=== PATIENT | male | born 1975 ===

== ENCOUNTER 2020-11-01 17:47 | Emergency (ER) | payer MEDICAID, SELFPAY ==
[2020-11-01 17:51] VITALS: BP 131/84; PULSE 98; RESP 16; TEMP 36.6; O2SAT 98; BMI 32.5
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
[2020-11-01] MEDS: Lidocaine HCl 2 % MPF 5 ML VIAL SUBCUT (18:50)
== END 2020-11-01 19:57 | disposition home or self-care (01) ==
PROVIDERS: Emergency Provider Internal Medicine
DX: S01.511A Laceration without foreign body of lip, initial encounter (principal); S00.83XA Contusion of other part of head, initial encounter; Y04.2XXA Assault by strike against or bumped into by another person, initial encounter; R07.81 Pleurodynia; Y93.9 Activity, unspecified; Y92.019 Unspecified place in single-family (private) house as the place of occurrence of the external cause; Y99.9 Unspecified external cause status
CPT/HCPCS: 12011; 70450; 71101; 90471; 90715; 99284

== ENCOUNTER 2021-05-09 16:53 | Emergency (ER) | payer MEDICAID, SELFPAY ==
--- NOTE | ~2021-05-09 | XR_ITS ---
EXAMINATION: LEFT CLINICAL INFORMATION: Fell and hit floor with pain COMPARISON: Left wrist 09/11/2019 left wrist and hand 07/09/2019 TECHNIQUE: 3 views left hand FINDINGS: There is a relatively nondisplaced fracture involving the diaphysis of the fifth metacarpal with some minimal ventral angulation on the lateral radiograph. Again noted is a plate and screw device over the distal radius. No other definite fractures are seen. XR/XR hand wrist LT IMPRESSION: Fracture mid diaphysis fifth metacarpal.
[2021-05-09 17:01] VITALS: BP 125/74; PULSE 88; RESP 18; TEMP 36.9; O2SAT 98; BMI 31.2
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
--- NOTE | 2021-05-09 18:23 | PC.NURSE ---
ULNAR GUTTER SPLINT APPLIED TO L HAND. PATIENT EDUCATED ON HOW TO CARE FOR SPLINT.
== END 2021-05-09 18:36 | disposition home or self-care (01) ==
PROVIDERS: Emergency Provider Internal Medicine
DX: S62.307A Unspecified fracture of fifth metacarpal bone, left hand, initial encounter for closed fracture (principal); W22.09XA Striking against other stationary object, initial encounter; Y93.9 Activity, unspecified; Y92.9 Unspecified place or not applicable; Y99.9 Unspecified external cause status
CPT/HCPCS: 29125; 73110; 73130; 99283

== ENCOUNTER → 2021-05-11 07:58 | Outpatient (BNVA) | payer MEDICAID, SELFPAY | PROVIDERS: Visit Provider Physician Assistant | DX: S62.308A Unspecified fracture of other metacarpal bone, initial encounter for closed fracture (principal) | CPT/HCPCS: 29125; 26605; 99202 ==

== ENCOUNTER 2021-05-18 08:10 | Outpatient (REF) | payer MEDICAID, SELFPAY ==
--- NOTE | ~2021-05-18 | XR_ITS ---
EXAMINATION: XR HAND, LEFT CLINICAL INFORMATION: Fracture metacarpal bone. COMPARISON: Left hand 05/09/2021 TECHNIQUE: PA, lateral, and oblique views of the left hand. FINDINGS: Again visualized is a transverse nondisplaced fracture diaphysis 5th metacarpal with mild volar angulation. No change from 05/09/2021. Volar plate and screws along the distal radius for an old healed fracture is noted. Mild dorsal 5th metacarpal soft tissue swelling is noted. XR/XR hand LT min 3V IMPRESSION: Stable transverse slightly volar angulated mid 5th metacarpal fracture. Old healed distal radial fracture with volar plate and screws is stable.
== END 2021-05-18 08:11 | disposition home or self-care (01) ==
LOC: HO.XRAY 08:10
PROVIDERS: PCP Internal Medicine; Visit Provider Physician Assistant
DX: S62.307G Unspecified fracture of fifth metacarpal bone, left hand, subsequent encounter for fracture with delayed healing (principal)
CPT/HCPCS: 73130; 99212

== ENCOUNTER 2021-05-19 11:28 | Day surgery (SDC) | payer MEDICAID, SELFPAY ==
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
[2021-05-19] VITALS (7 sets, daily range): BP systolic 122–127; BP diastolic 73–90; PULSE 68–84; RESP 14–18; TEMP 36.6–36.8; O2SAT 94–98; BMI 31.0
--- NOTE | ~2021-05-19 | FL_ITS ---
EXAMINATION: XR FLUOROSCOPY WITH IMAGES CLINICAL INFORMATION: Fracture left fifth metacarpal with ORIF. COMPARISON: Left hand 05/18/2021 TECHNIQUE: Fluoroscopy performed by Dr. Arpan Uribe. Fluoroscopy time: Not available minutes DAP: 76 mGycm2 Images: 3 FINDINGS: There is a left mid fifth metacarpal fracture stabilized with a longitudinal pin through the fifth metacarpal. The fracture fragment is in alignment. No gross bony abnormality seen. FL/FL guidance in OR IMPRESSION: Status post ORIF left fifth metacarpal fracture
--- NOTE | 2021-05-19 12:00 | P.OP_ITS ---
Operative Note Operative Note Date of Service: 05/19/21 Narrative: Operative Note Narrative: Preop diagnosis: 1. Left Metacarpal 5th metacarpal shaft fracture Postop diagnosis: Same Procedure: 1. Left Metacarpal fracture closed reduction percutaneous pinning 2. Ulnar nerve block Surgeon: Jojo Antony MD Anesthesia: General Findings: Metacarpal fracture Implants: 0.062 K-wires times 2 Tourniquet time: None EBL: Minimal Specimen: None Drains: None Complications: None Disposition: Brought to the recovery room in stable condition Plan: Follow-up in 10-14 days for a wound check, postop radiographs and for placement in a short-arm cast or splint Anticipate K-wire removal in 4-5 weeks based on interval bony healing Educate the patient that full fracture healing anticipated in approximately 8-12 weeks. Indications: The patient is 46 years old with a left 5th metacarpal shaft fracture . The risks and benefits of operative treatment, including but not limited to risk of damage to blood vessels, nerves, tendons, infection, recurrence, delayed or nonunion of fracture, persistent pain or numbness, incomplete resolution of preoperative symptoms, or need for further surgery were discussed with the patient and they wished to proceed with surgery. Procedure: Once consent was obtained patient was brought back to the operating suite and placed in the operating table in a supine position. . Perioperative antibiotics and general anesthesia was administered by the anesthesia team. A tourniquet was applied to the proximal aspect of the left upper extremity and the limb was prepped and draped in a standard surgical fashion. Tourniquet was not inflated during the case. The FluoroScan was used during the case to assist with our fracture reduction and placement of all implants. A closed reduction was performed on the patient 's left 5th metacarpal shaft fracture. I placed a single 0.062 K-wire retrograde through the head of the metacarpal extending proximally across the fracture site to the base of the metacarpal. A 2nd 0.062 K-wire was placed transversely through the neck of the 5th metacarpal extending into the head and neck of the 4th metacarpal. Fracture alignment was assessed for both angular and rotational malalignment. Once satisfied with our fracture reduction and implant placement, the K-wires were bent and cut short and pin caps applied. Final fluoroscopic images were then obtained. The wounds were copiously irrigated with normal saline. An ulnar nerve block was then performed by infiltrating about the ulnar nerve at the wrist with some 1% lidocaine with epinephrine for postop pain control. A Sterile dressing and short volar splint was applied. The patient appears to have tolerated the procedure well and with no complications. All digits were well vascularized at the conclusion of the case.
[2021-05-19] MEDS: Lactated Ringers 1,000 ML 100 ML IVCONT (12:22)
--- NOTE | 2021-05-19 13:18 | PC.NURSE ---
Silver dog tag necklace placed in labeled blue cup and placed in patient belongings bag.
--- NOTE | 2021-05-19 13:26 | MHC.SHP ---
Pre-Procedural Eval Section A Date of Service: 05/19/21 Section B Chief Complaint: fx of metacarpal bone Allergies: Allergies Allergy/AdvReac Type Severity Reaction Status Date / Time acetaminophen [From Vicodin] AdvReac Nausea and Verified 05/18/21 14:15 Vomiting hydrocodone [From Vicodin] AdvReac Nausea and Verified 05/18/21 14:15 Vomiting Plan I have reviewed the history and physical and performed a pertinent physical examination on my patient. No changes have occurred unless specified.
== END 2021-05-19 15:43 ==
LOC: HO.SSS 11:28
PROVIDERS: PCP Internal Medicine; Visit Provider Orthopaedic Surgery
PROC: (CPT 26615; principal; 2021-05-19 13:00)
DX: S62.327A Displaced fracture of shaft of fifth metacarpal bone, left hand, initial encounter for closed fracture (principal); X58.XXXA Exposure to other specified factors, initial encounter; Y93.9 Activity, unspecified; Y92.9 Unspecified place or not applicable; Y99.8 Other external cause status; I10 Essential (primary) hypertension; F17.200 Nicotine dependence, unspecified, uncomplicated; Z79.899 Other long term (current) drug therapy
CPT/HCPCS: 26608; J0690; J1100; J2250; J3010

== ENCOUNTER → 2021-05-24 09:03 | Outpatient (BNVA) | payer MEDICAID, SELFPAY | PROVIDERS: Visit Provider Physician Assistant | DX: S62.307G Unspecified fracture of fifth metacarpal bone, left hand, subsequent encounter for fracture with delayed healing (principal) | CPT/HCPCS: 99212 ==

== ENCOUNTER 2021-05-27 23:34 | Emergency (ER) | payer MEDICAID, SELFPAY ==
[2021-05-28 00:11] VITALS: BP 123/71; PULSE 79; RESP 18; TEMP 36.9; O2SAT 97; BMI 30.1
--- NOTE | 2021-05-28 00:43 | ED.EXTPRO ---
HPI - Extremity Problem General Chief complaint: Extremity Injury, Upper Stated complaint: left arm injury Time Seen by Provider: 05/28/21 00:43 Source: patient Mode of arrival: ambulatory History of Present Illness HPI Narrative: 46-year-old male presents with concerns regarding his cast falling off earlier in the day after he had surgery on 05/19 for repair of a left boxer's fracture. Otherwise, he denies any pain, fevers, chills. Related Data Home Medications Medication Instructions Recorded Confirmed omeprazole 1 cap PO DAILY 05/19/21 05/19/21 Previous Rx's Medication Instructions Recorded oxycodone-acetaminophen 1 tab PO Q6H PRN #10 tab 05/19/21 Allergies Allergy/AdvReac Type Severity Reaction Status Date / Time acetaminophen [From Vicodin] AdvReac Nausea and Verified 05/28/21 00:11 Vomiting hydrocodone [From Vicodin] AdvReac Nausea and Verified 05/28/21 00:11 Vomiting Review of Systems Review of Systems: Pertinent positives and negatives as stated in HPI 10 point review of systems is otherwise negative. PMFSH Past Medical History Source: nursing notes reviewed Medical History Depression GERD (gastroesophageal reflux disease) HLD (hyperlipidemia) HTN (hypertension) IBS (irritable bowel syndrome) Smoker Surgical History H/O hemorrhoidectomy Social History Social History Alcohol intake: current Alcohol intake frequency: holidays/special occasions only Patient Tobacco Use Status: Current everyday Tobacco user Advance Directives: No Advance Directives Information Provided: No Current occupational status: employed Current occupation: left handed Physical Exam Vital Signs: Vital Signs: Last Vital Signs Temp 98.4 F 05/28/21 00:11 Pulse 79 05/28/21 00:11 Resp 18 05/28/21 00:11 BP 123/71 05/28/21 00:11 Pulse Ox 97 05/28/21 00:11 Body Mass Index 30.1 VITAL SIGNS: Reviewed. GENERAL: Well developed, well nourished, in no acute distress. HEAD: Normocephalic/atraumatic EYES: PERRLA, EOMI LUNGS: Normal breath sounds. No adventitious sounds or accessory muscle use. SpO2<97> CARDIOVASCULAR: Regular rate and rhythm without noted murmurs ABDOMEN: Soft, non-tender, non-distended with bowel sounds. LEFT HAND: Pins in place without erythema or induration, capillary refill less than 3 seconds, sensation intact, palpable ulnar and radial pulses. NEUROLOGIC: Alert and oriented x 4. Course Course Course Narrative: 46-year-old male with history and clinical presentation consistent with surgical repair of left boxer's fracture and subsequent loss of cast that had been in place. Volar splint was placed after discussion with Orthopedics PA and patient has been made aware that he needs to follow up at the office on 05/31, Sunday. Discharge Plan Discharge Clinical Impression: Boxer's fracture Patient Disposition: Home, Self-Care Instructions: Splint Care (ED), Boxer Fracture (ED) Additional Instructions: 1. Please resume all home medications as prescribed. 2. You are to follow-up with the orthopedic office on Thursday 05/31. Return to the ER for acute worsening of symptoms. Prescriptions: No Action omeprazole 20 mg capsule,delayed release(DR/EC) 1 cap PO DAILY RF: 0 oxycodone-acetaminophen 5-325 mg tablet 1 tab PO Q6H PRN (Reason: pain) Qty: 10 RF: 0 Referrals: Jojo Antony MD [Physician] - 2 days Physician,Unknown [Primary Care Provider] - 2 days
== END 2021-05-28 01:33 | disposition home or self-care (01) ==
PROVIDERS: Emergency Provider Student in an Organized Health Care Education/Training Program
DX: S62.339D Displaced fracture of neck of unspecified metacarpal bone, subsequent encounter for fracture with routine healing (principal); X58.XXXD Exposure to other specified factors, subsequent encounter
CPT/HCPCS: 29125; 99283

== ENCOUNTER 2021-05-31 08:42 | Outpatient (REF) | payer MEDICAID, SELFPAY ==
--- NOTE | ~2021-05-31 | XR_ITS ---
EXAMINATION: XR HAND, LEFT CLINICAL INFORMATION: Fracture 5th metacarpal. COMPARISON: Prior examination 05/18/2021 TECHNIQUE: PA, lateral, and oblique views of the left hand. FINDINGS: Perpendicular positioned K-wires noted within the 5th metacarpal. The longitudinally-oriented K-wire extends through the diaphyseal fracture. Alignment is improved compared with preoperative radiographs. There is some callus formation noted. ADDITIONAL FINDINGS: Postsurgical changes partially visualized in the distal radius with plate and screw fixation noted and some deformity of the distal radius, unchanged. XR/XR hand LT min 3V IMPRESSION: Postoperative changes with improved alignment and hardware in place within the 5th metacarpal. The 5th metacarpal fracture remains visible with some callus formation forming.
== END 2021-05-31 08:43 | disposition home or self-care (01) ==
LOC: HO.HOSX 08:42
PROVIDERS: Visit Provider Physician Assistant
DX: S62.307G Unspecified fracture of fifth metacarpal bone, left hand, subsequent encounter for fracture with delayed healing (principal); W01.0XXD Fall on same level from slipping, tripping and stumbling without subsequent striking against object, subsequent encounter; E78.5 Hyperlipidemia, unspecified; I10 Essential (primary) hypertension; F17.210 Nicotine dependence, cigarettes, uncomplicated
CPT/HCPCS: 29085; 73130; 99212

== ENCOUNTER 2021-06-04 12:01 | Emergency (ER) | payer MEDICAID, SELFPAY ==
[2021-06-04 12:07] VITALS: BP 128/87; PULSE 88; RESP 16; TEMP 37.1; O2SAT 96; BMI 29.0
--- NOTE | 2021-06-04 13:51 | ED.GENADULT ---
HPI - General Adult General Chief complaint: Wound/Laceration Stated complaint: HAND INFECTION Time Seen by Provider: 06/04/21 13:03 Source: patient Limitations: no limitations History of Present Illness HPI narrative: This is a patient with a history of a boxer's fracture, for which he had external fixation surgery done May 19. Patient admits a prior history of boxer's fracture states he has problems with ?anger management?. The patient is concerned that there is a little discharge he is noted on the bandage near the distal pin. He wanted be checked to make sure there is no infection. He has been using peroxide on a cotton swab to clean the pens. Does have orthopedic follow-up. He denies any fever. Related Data Home Medications Medication Instructions Recorded Confirmed omeprazole 1 cap PO DAILY 05/19/21 05/19/21 Previous Rx's Medication Instructions Recorded oxycodone-acetaminophen 1 tab PO Q6H PRN #10 tab 05/19/21 Allergies Allergy/AdvReac Type Severity Reaction Status Date / Time acetaminophen [From Vicodin] AdvReac Nausea and Verified 05/31/21 09:44 Vomiting hydrocodone [From Vicodin] AdvReac Nausea and Verified 05/31/21 09:44 Vomiting Review of Systems Constitutional: Constitutional: Denies fever(s) Integumentary/Breasts: Comments: Drainage noted of the bandage near his left hand external fixation pins, believes there is swelling PMFSH Past Medical History Medical History Anxiety Depression GERD (gastroesophageal reflux disease) HLD (hyperlipidemia) HTN (hypertension) IBS (irritable bowel syndrome) Smoker Surgical History H/O hemorrhoidectomy Social History Social History Alcohol intake: current Alcohol intake frequency: holidays/special occasions only Patient Tobacco Use Status: Current everyday Tobacco user Advance Directives: Yes Advance Directives Information Provided: Yes Advance Directives on File: No Current occupational status: employed Current occupation: left handed Physical Exam Vital Signs: Vital Signs: Last Vital Signs Temp 98.7 F 06/04/21 12:07 Pulse 88 06/04/21 12:07 Resp 16 06/04/21 12:07 BP 128/87 06/04/21 12:07 Pulse Ox 96 06/04/21 12:07 Body Mass Index 29.0 Const: Other: Patient has a somewhat bizarre affect, with speech that is difficult to interrupt, perseverates about his orthopedic and anger issues. General: anxious HENMT: Head: Yes normal to inspection Eyes: General: appearance normal, both eyes and all related structures Resp: Effort & Inspection: normal respiratory effort Auscultation: clear to auscultation bilaterally Cardio: Rate: regular rate Rhythm: regular rhythm Heart sounds: S1 normal heart sound present and S2 normal heart sound present Skin: Other: Left hand with 2 external fixating pins. Both are intact. No drainage from either 1 visible. The bandage has some dried serosanguineous material, very small amount that is dried and crusted. No localized erythema. No fluid can be milked from either of the wounds. No erythema or remarkable swelling. Medical Decision Making MDM Narrative Medical decision making narrative: Patient seems to have a lot of anxiety about his pins slash wounds. He seems to want to have them out but also knows that he is scheduled to have them out later in the month and that they need to stay and to allow the bone to heal. Patient was concerned about infection. No evidence of infection on exam. The patient's pins were cleansed and is and redressed with a new Russel bandage Discharge Plan Discharge Clinical Impression: Visit for wound check Patient Disposition: Home, Self-Care Additional Instructions: Continue cleaning the pins that are in your hand with hydrogen peroxide on a cotton swab daily, and keeping the pin covered with gauze so that the sites where they entered this can does not become contaminated or infected. Follow-up with orthopedics as previously instructed. Return for any worsened symptoms such as increased redness or swelling, fever Prescriptions: No Action omeprazole 20 mg capsule,delayed release(DR/EC) 1 cap PO DAILY RF: 0 oxycodone-acetaminophen 5-325 mg tablet 1 tab PO Q6H PRN (Reason: pain) Qty: 10 RF: 0
--- NOTE | 2021-06-04 14:04 | PC.NURSE ---
PT REMOVED DRESSING FROM HAND/FOREARM, HARDWARE SITE CLEANSED AND HAND RE-DRESSED.
== END 2021-06-04 14:05 | disposition home or self-care (01) ==
PROVIDERS: Emergency Provider Emergency Medicine
DX: S62.339D Displaced fracture of neck of unspecified metacarpal bone, subsequent encounter for fracture with routine healing (principal); X58.XXXD Exposure to other specified factors, subsequent encounter; F41.9 Anxiety disorder, unspecified
CPT/HCPCS: 99283

== ENCOUNTER → 2021-06-06 12:21 | Outpatient (BNVA) | payer MEDICAID, SELFPAY | PROVIDERS: Visit Provider Orthopaedic Surgery | DX: S62.308D Unspecified fracture of other metacarpal bone, subsequent encounter for fracture with routine healing (principal) | CPT/HCPCS: 99212 ==

== ENCOUNTER 2021-06-07 12:00 | Day surgery (SDC) | payer MEDICAID, SELFPAY ==
[2021-06-07] VITALS (7 sets, daily range): BP systolic 93–120; BP diastolic 52–71; PULSE 67–96; RESP 11–18; TEMP 36.6–36.7; O2SAT 96–100; BMI 29.4
--- NOTE | 2021-06-07 13:10 | P.CONAN_ITS ---
[facility] Active Problems Active Problems: All Active Problems (Updated 06/05/21 @ 00:00 by Background Clifford escobar) Boxer's metacarpal fracture, neck, closed (Acute) Closed fracture of 5th metacarpal (Acute) Fracture of fifth metacarpal bone of left hand with delayed healing (Acute) Past Medical History Medical History Anxiety Depression GERD (gastroesophageal reflux disease) HLD (hyperlipidemia) HTN (hypertension) IBS (irritable bowel syndrome) Smoker Surgical History Surgical History H/O hemorrhoidectomy Social History Social History Alcohol intake: current Alcohol intake frequency: holidays/special occasions only Patient Tobacco Use Status: Current everyday Tobacco user Advance Directives: No Advance Directives Information Provided: Yes Current occupational status: employed Current occupation: left handed Meds Allergies Allergy/AdvReac Type Severity Reaction Status Date / Time acetaminophen [From Vicodin] AdvReac Nausea and Verified 06/06/21 12:37 Vomiting hydrocodone [From Vicodin] AdvReac Nausea and Verified 06/06/21 12:37 Vomiting Home Medications Medication Instructions Recorded Confirmed Last Taken Type omeprazole 1 cap PO DAILY 05/19/21 05/19/21 Unknown History Exam Exam Date and Time: June 07, 2021 1310 Height,Weight and Vital Signs: Height 5 ft 10 in Weight 205 lb Last Vital Signs Temp 98.0 F 06/07/21 12:20 Pulse 76 06/07/21 12:20 Resp 18 06/07/21 12:20 BP 111/52 L 06/07/21 12:20 Pulse Ox 97 06/07/21 12:20 Airway Mallampati Class: II TM Dist: >3cm Neck ROM: Full Loose/Missing/Broken Teeth: No Assessment and Plan Assessment Anesthesia Assessment: Anesthesia Plan Discussed and Chart Reviewed Final Anesthetic Review NPO: Yes ASA Class: II Final Preanesthetic Review: No Changes in Pt Med Stat, Meds/Allgs Chart Reviewed, Consent Obtained/Reviewed and Anes Risks/Benef Reviewed Patient Risk: Low Procedure Risk: Low Anesthetic Plan Anesthetic Plan: GA Disposition: Standard PACU
[2021-06-07] MEDS: Lactated Ringers 1,000 ML 50 ML IVCONT (14:10)
--- NOTE | 2021-06-07 14:26 | MHC.SHP ---
Pre-Procedural Eval Section A Date of Service: 06/07/21 Section B Chief Complaint: pin track infection Allergies: Allergies Allergy/AdvReac Type Severity Reaction Status Date / Time acetaminophen [From Vicodin] AdvReac Nausea and Verified 06/06/21 12:37 Vomiting hydrocodone [From Vicodin] AdvReac Nausea and Verified 06/06/21 12:37 Vomiting Plan I have reviewed the history and physical and performed a pertinent physical examination on my patient. No changes have occurred unless specified.
--- NOTE | 2021-06-07 14:27 | W.PM.OPN ---
Operative Note Operative Note Date of Service: 06/07/21 Narrative: Operative Note Narrative: Preop diagnosis: 1. Left 5th metacarpal fracture status post CRPP 2. Left hand pin site infection Postop diagnosis: Same Procedure: 1. Left 5th MCP joint I&D 2. Left 5th metacarpal I&D 3. Left ulnar nerve block Surgeon: Jojo Antony MD Anesthesia: General Findings: Small amount of purulence distal K-wire site at the MCP joint Implants: None, 2 K-wires had been removed from patient in clinic yesterday Tourniquet time: 0 minutes EBL: 5.0 ml Specimen: Cultures taken from both pin sites Drains: None Complications: None Disposition: Brought to the recovery room in stable condition Plan: Follow-up in 3-5 days for wound check, to check cultures, and to assure that the patient is taking his antibiotics Radiographs three views of the left hand to follow-up on left 5th metacarpal shaft fracture at next follow-up Indications: The patient is a 46 year old man with a left 5th metacarpal shaft fracture status post CRPP almost 3 weeks ago. Unfortunately the patient tripped and fell, immersing his left hand in a muddy puddle shortly after surgery. He has also had difficulty complying with keeping clean dressings on his hand and the pin sites. He was seen yesterday in clinic and found to have purulent drainage from the distal most pin site. The decision was made that time to removed both K-wires and to take him to surgery today for an I& D. He has also been started on Augmentin. . The risks and benefits of operative treatment, including but not limited to risk of damage to blood vessels, nerves, tendons, infection, recurrence, persistent pain or numbness, incomplete resolution of preoperative symptoms, or need for further surgery were discussed with the patient and they wished to proceed with surgery. Procedure: Once consent was obtained patient was brought back to the operating suite and placed in the operating table in a supine position. Anesthesia was administered by the anesthesia team. About half of the antibiotics were administered before a culture was taken, and the other half was administered after our culture was taken. A tourniquet was applied to the proximal aspect of the left upper extremity and the limb was prepped and draped in a standard surgical fashion. The tourniquet was not inflated during the case.. Two separate cultures were taken, 1 from the transverse K-wire site at the ulnar aspect of the 5th metacarpal neck, and the 2nd from the more distal and longitudinal K-wire site over the 5th MCP joint. Both specimens were sent for cultures. A 15. Blade was used to make an approximately 8 mm longitudinal incision centered over the ulnar-sided K-wire pin site. Tenotomy scissors were then used to dissect down to the ulnar aspect of the 5th metacarpal, following the K-wire track. A small curette was used to debride the ulnar opening to the 5th metacarpal. The wound was then copiously irrigated down to the 5th metacarpal using an Angiocath on a syringe. My attention was then turned to the more distal pin tract. There was already a 1 cm longitudinal wound at the site of the pin tract. Tenotomy scissors were used to carefully dissect down to the level of the MCP joint and the 5th metacarpal head. Some devitalized tissue was carefully excised from the superficial aspect of the wound. An Angiocath and a syringe was then used to copiously irrigate the wound all the way down to the 5th metacarpal head and the MCP joint. Would satisfied with her I&D I performed an ulnar nerve block by infiltrating about the ulnar nerve at the wrist with some 0.25% plain Marcaine for postop pain control. Hemostasis was obtained with a brief period of local pressure. A sterile dressing and a volar/ulnar gutter splint that would allow for finger range of motion was then placed . The patient appears to have tolerated the procedure well and with no complications. All digits were well vascularized conclusion of the case.
== END 2021-06-07 16:11 | disposition home or self-care (01) ==
PROVIDERS: PCP Pediatrics; Visit Provider Orthopaedic Surgery
PROC: (CPT 10180; principal; 2021-06-07 14:30)
DX: T81.49XA Infection following a procedure, other surgical site, initial encounter (principal); L76.82 Other postprocedural complications of skin and subcutaneous tissue; S62.367A Nondisplaced fracture of neck of fifth metacarpal bone, left hand, initial encounter for closed fracture; Z91.19 Patient's noncompliance with other medical treatment and regimen; W18.39XA Other fall on same level, initial encounter; Y93.9 Activity, unspecified; Y92.89 Other specified places as the place of occurrence of the external cause; Y99.8 Other external cause status; I10 Essential (primary) hypertension; F17.210 Nicotine dependence, cigarettes, uncomplicated
CPT/HCPCS: 10180; 87071; 87205; J0690; J1100; J2250; J2405; J3010

== ENCOUNTER → 2021-06-10 12:58 | Outpatient (BNVA) | payer MEDICAID, SELFPAY | PROVIDERS: Visit Provider Physician Assistant | DX: S62.339D Displaced fracture of neck of unspecified metacarpal bone, subsequent encounter for fracture with routine healing (principal) | CPT/HCPCS: 99212 ==

== ENCOUNTER → 2021-06-17 12:06 | Outpatient (BNVA) | payer MEDICAID, SELFPAY | PROVIDERS: Visit Provider Physician Assistant | DX: S62.337D Displaced fracture of neck of fifth metacarpal bone, left hand, subsequent encounter for fracture with routine healing (principal) | CPT/HCPCS: 99212 ==

== ENCOUNTER 2021-06-20 14:37 | Outpatient (REF) | payer MEDICAID, SELFPAY | END 2021-06-20 14:38 | disposition home or self-care (01) | LOC: HO.HOSX 14:37 | PROVIDERS: Visit Provider Orthopaedic Surgery | DX: Z13.89 Encounter for screening for other disorder (principal) ==

== ENCOUNTER → 2021-07-11 09:58 | Outpatient (BNVA) | payer MEDICAID, SELFPAY | PROVIDERS: PCP Internal Medicine; Referring Provider Internal Medicine; Visit Provider Physician Assistant | DX: K58.9 Irritable bowel syndrome, unspecified (principal); K64.9 Unspecified hemorrhoids; K64.4 Residual hemorrhoidal skin tags | CPT/HCPCS: 99202 ==

== ENCOUNTER 2021-07-27 08:04 | Outpatient (REF) | payer MEDICAID, SELFPAY | END 2021-07-27 08:05 | disposition home or self-care (01) | LOC: HO.HOSX 08:04 | PROVIDERS: Visit Provider Orthopaedic Surgery | DX: Z13.89 Encounter for screening for other disorder (principal) ==

== ENCOUNTER → 2021-10-05 09:24 | Outpatient (BNVA) | payer MEDICAID, SELFPAY | PROVIDERS: PCP Internal Medicine; Referring Provider Internal Medicine; Visit Provider Surgery | DX: K64.8 Other hemorrhoids (principal) | CPT/HCPCS: 46600; 99202 ==

== ENCOUNTER 2021-11-04 07:42 | Outpatient (REF) | payer MEDICAID, SELFPAY ==
--- NOTE | ~2021-11-04 | XR_ITS ---
EXAMINATION: XR SHOULDER, RIGHT CLINICAL INFORMATION: Right shoulder pain COMPARISON: None TECHNIQUE: AP external rotation, Grashey, scapular Y, and axillary views of the right shoulder. FINDINGS: The bones and soft tissues are normal. No fracture. Glenohumeral and acromioclavicular alignment is anatomic with normal joint space. No abnormal soft tissue calcifications. XR/XR shoulder RT min 2V IMPRESSION: Normal right shoulder.
== END 2021-11-04 07:43 | disposition home or self-care (01) ==
LOC: HO.HOSX 07:42
PROVIDERS: Visit Provider Physician Assistant
DX: M75.41 Impingement syndrome of right shoulder (principal); M25.511 Pain in right shoulder; I10 Essential (primary) hypertension; E78.5 Hyperlipidemia, unspecified; F41.8 Other specified anxiety disorders; F17.210 Nicotine dependence, cigarettes, uncomplicated; Z88.6 Allergy status to analgesic agent
CPT/HCPCS: 20610; 73030; 99212; J1040

== ENCOUNTER → 2021-12-16 09:31 | Outpatient (BNVA) | payer MEDICAID, SELFPAY | PROVIDERS: PCP Internal Medicine; Visit Provider Physician Assistant | DX: M75.41 Impingement syndrome of right shoulder (principal); M75.51 Bursitis of right shoulder | CPT/HCPCS: 99212 ==

== ENCOUNTER → 2022-04-13 10:11 | Outpatient (BNVA) | payer MEDICAID, SELFPAY | PROVIDERS: PCP Internal Medicine; Visit Provider Physician Assistant | DX: K58.9 Irritable bowel syndrome, unspecified (principal) ==

== ENCOUNTER 2022-05-10 08:27 | Day surgery (SDC) | payer MEDICAID, SELFPAY ==
[2022-05-04 12:35] VITALS: BMI 30.7
--- NOTE | 2022-05-09 08:58 | P.CONAN_ITS ---
Documented by User: Kaylene Daniel NP 05/09/22 08:59 HPI - Anesthesia Eval Consult details Narrative: 47yo M for Right Shoulder Arthroscopy with subacrominal decompression s/p hand I&D 05/2021 with GA-LMA 4 PMFSH Active Problems Active Problems: All Active Problems (Updated 04/13/22 @ 10:37 by Brigitte Shannon PA-C) Boxer's metacarpal fracture, neck, closed (Acute) Closed fracture of 5th metacarpal (Acute) Fracture of fifth metacarpal bone of left hand with delayed healing (Acute) Anal skin tag (Acute) Impingement syndrome of right shoulder (Acute) Subacromial bursitis of right shoulder joint (Acute) Prolapsed hemorrhoids (Acute) Hemorrhoids (Acute) IBS (irritable bowel syndrome) (Acute) Past Medical History Medical History Anxiety Depression GERD (gastroesophageal reflux disease) Hemorrhoids HLD (hyperlipidemia) HTN (hypertension) IBS (irritable bowel syndrome) Prolapsed hemorrhoids Smoker Surgical History Surgical History H/O hemorrhoidectomy History of esophagogastroduodenoscopy (EGD) Hx of colonoscopy Hx of hand surgery Social History Social History (Updated 05/10/22 @ 09:03 by Maira Rivera RN) Household Members Other:: lives alone-5 daughters and 1 son Are you a primary healthcare administrator to a significant other at home: No Do you presently have visiting nurse or other home services: No Alcohol intake: current Alcohol intake frequency: does not drink Patient Tobacco Use Status: Former Tobacco user Quit Date: 01/26/2022 Current occupational status: unemployed and disabled Current occupation: left handed Meds Allergies Allergy/AdvReac Type Severity Reaction Status Date / Time acetaminophen [From Vicodin] AdvReac Nausea and Verified 05/08/22 14:07 Vomiting, hives hydrocodone [From Vicodin] AdvReac Nausea and Verified 05/08/22 14:07 Vomiting Home Medications Medication Instructions Recorded Confirmed Last Taken Type omeprazole 20 mg capsule,delayed 1 cap PO DAILY 05/19/21 05/10/22 05/09/22 Histo ry release Exam Exam Date and Time: May 09, 2022 0858 Height,Weight and Vital Signs: Height 5 ft 9 in Weight 94.347 kg Assessment and Plan Assessment Anesthesia Assessment: Chart Reviewed Documented by User: Ian Waterman MD 05/10/22 16:26 HPI - Anesthesia Eval Consult details Narrative: 47yo M for Right Shoulder Arthroscopy with subacrominal decompression s/p hand I&D 05/2021 with GA-LMA 4 RUE restricted range of motion with tingling and numbness PMFSH Past Medical History Medical History Anxiety Depression GERD (gastroesophageal reflux disease) Hemorrhoids HLD (hyperlipidemia) HTN (hypertension) IBS (irritable bowel syndrome) Prolapsed hemorrhoids Smoker Family History Family history of problems with anesthesia: No Surgical History Surgical History H/O hemorrhoidectomy History of esophagogastroduodenoscopy (EGD) Hx of colonoscopy Hx of hand surgery History of Problems with Anesthesia: No Social History Social History (Updated 05/10/22 @ 09:03 by Maira Rivera RN) Household Members Other:: lives alone-5 daughters and 1 son Are you a primary healthcare administrator to a significant other at home: No Do you presently have visiting nurse or other home services: No Alcohol intake: current Alcohol intake frequency: does not drink Patient Tobacco Use Status: Former Tobacco user Quit Date: 01/26/2022 Current occupational status: unemployed and disabled Current occupation: left handed Meds Allergies Allergy/AdvReac Type Severity Reaction Status Date / Time acetaminophen [From Vicodin] AdvReac Nausea and Verified 05/08/22 14:07 Vomiting, hives hydrocodone [From Vicodin] AdvReac Nausea and Verified 05/08/22 14:07 Vomiting Home Medications Medication Instructions Recorded Confirmed Last Taken Type omeprazole 20 mg capsule,delayed 1 cap PO DAILY 05/19/21 05/10/22 05/09/22 History release Exam Airway Mallampati Class: III TM Dist: >3cm Neck ROM: Full Loose/Missing/Broken Teeth: Yes (Chipped teeth ) Heart: S1,S2 Lungs: b/l breath sounds Assessment and Plan Assessment Anesthesia Assessment: Anesthesia Plan Discussed Final Anesthetic Review Family History of Problems with Anesthesia: No History of Problems with Anesthesia: No NPO: Yes ASA Class: II Final Preanesthetic Review: Meds/Allgs Chart Reviewed and Consent Obtained/Reviewed Patient Risk: Intermediate Procedure Risk: Intermediate Anesthetic Plan Anesthetic Plan: GA and Regional Block Disposition: Standard PACU
[2022-05-10] VITALS (10 sets, daily range): BP systolic 104–124; BP diastolic 60–76; PULSE 66–95; RESP 16–18; TEMP 36.3–36.7; O2SAT 93–96; BMI 31.0
[2022-05-10] MEDS: Lactated Ringers 1,000 ML 100 ML IVCONT (09:51)
--- NOTE | 2022-05-10 11:27 | MHC.SHP ---
Pre-Procedural Eval Section A Date of Service: 05/10/22 The patient is an INPATIENT: No Changes since office visit: Yes Patient answered all questions; No Cold of Flu in the past 2 weeks, No New Medical Problems and No Changes in Medication The History & Physical has been completed within 30 days and I have reviewed it.: Yes Section B Chief Complaint: Bursitis of right shoulder,impingement syndrome Allergies: Allergies Allergy/AdvReac Type Severity Reaction Status Date / Time acetaminophen [From Vicodin] AdvReac Nausea and Verified 05/08/22 14:07 Vomiting, hives hydrocodone [From Vicodin] AdvReac Nausea and Verified 05/08/22 14:07 Vomiting Plan I have reviewed the history and physical and performed a pertinent physical examination on my patient. No changes have occurred unless specified.
--- NOTE | 2022-05-10 12:33 | P.BOP_ITS ---
Brief Operative Note Date of Service: 05/10/22 Pre-op diagnosis: Sub acromial impingement Post-op diagnosis: other (Adhesive capsulitis) Procedure: Anterior interval release and synovectomy sub acromial decompression Implants: none Surgeon: Nael Cheatham MD Anesthesia: GETA and regional Was an Swimming Pool Installer used for this Procedure?: Yes Swimming Pool Installer: Trini Abarca Estimated blood loss (mL): 20 IV fluids (mL): 500 Pathology: none sent Condition: stable Disposition: PACU
--- NOTE | 2022-05-16 11:25 | P.OP_ITS ---
Operative Note Operative Note Date of Service: 05/16/22 Narrative: Date of Service: 05/10/22 Pre-op diagnosis: Sub acromial impingement Post-op diagnosis: other (Adhesive capsulitis) Procedure: Anterior interval release and synovectomy sub acromial decompression Implants: none Surgeon: Nael Cheatham MD Anesthesia: GETA and regional Was an Shipping Receiving Manager used for this Procedure?: Yes Shipping Receiving Manager: Trini Abarca Estimated blood loss (mL): 20 IV fluids (mL): 500 Pathology: none sent Condition: stable Disposition: PACU Procedure in detail: Patient was brought to the operating room and placed the the beach chair position. All bony prominences were well padded and the limb was prepped and draped in standard sterile fashion. A time out was called to identify proper site, proper procedure and proper surgeon. IV antibiotics per weight were administered. I began by making a posterolateral stab incision with a 15 blade. A blunt trochar was placed into the glenohumeral joint and I insufflated the joint with saline and a 30 degree arthroscope was placed. I established an outside- in anterior portal just distal to the biceps tendon. I then began my inspection of the glenohumeral joint. There was anterior interval synovitis involving the MGHL, and the superior labrum/biceps anchor. An interior interval synovectomy was performed removing all inflamed synovium. The biceps/labral complex was intact as was the subscapularis and the labrum. There were no cartilage changes and the undersurface of the RTC was intact. I then removed the trochar and entered the subacromial space. A direct lateral portal was then established and I performed a bursectomy. The cuff was then examined.There was florid subacromial bursitis. I debrided and removed the bursal tissue and then performed a 5 mm sub-acromial decompression in standard fashion. The RTC was examined adn was intact. Once I was satisfied with the repair final images were captured and I removed all instrumentation. Portals were closed with nylon. Patient was placed in an abduction sling, extubated and brought to the recovery room in stable condition. There were no known complications.
== END 2022-05-10 14:50 | disposition home or self-care (01) ==
LOC: HO.SSS 08:27
PROVIDERS: PCP Internal Medicine; Visit Provider Orthopaedic Surgery
PROC: (CPT 29805; principal; 2022-05-10 10:50)
DX: M75.41 Impingement syndrome of right shoulder (principal); M75.51 Bursitis of right shoulder; M75.01 Adhesive capsulitis of right shoulder; K21.9 Gastro-esophageal reflux disease without esophagitis; I10 Essential (primary) hypertension; E78.5 Hyperlipidemia, unspecified; K58.9 Irritable bowel syndrome, unspecified; F17.210 Nicotine dependence, cigarettes, uncomplicated
CPT/HCPCS: 29822; 29820; J0171; J0690; J1100; J1170; J2250; J2370; J2405; J2550; J2795; J3010

== ENCOUNTER 2022-06-29 13:00 | Outpatient (RCR) | payer MEDICAID, SELFPAY ==
--- NOTE | 2022-05-15 15:51 | MHC.PT.EP ---
[facility] [place] Office [place] Office [place] Office [address] Yannick Spear [address] [phone] F: [phone] F: [phone] F: [phone] F: [phone] Physical Therapy Plan of Care Date of Evaluation: Date of Surgery: 05/10/22 Diagnosis: Anterior interval release and synovectomy sub acromial decompression Assessment: AGNES IS A 47 YO MALE S/P SAD AND ANTERIOR INTERVAL RELEASE WHO PRESENTS POD #5 FOR ORTHOPEDIC FOLLOW UP AND PT EVALUATION. UPON EXAM HE DEMONSTRATES THE EXPECTED IMPAIRMENTS OF DECREASED ROM, DECREASED STRENGTH, ALTERED POSTURE AND POSITIONING, INCREASED UPPER TRAP GUARDING, AND INCREASED PAIN AND EDEMA. FUNCTIONAL LIMITATIONS INCLUDE DECREASED ABILITY TO PERFORM HOMEMAKING AND SELF-CARE TASKS, DECREASED ABILITY TO PERFORM PUSHING, PULLING, LIFTING AND REACHING. INABILITY TO DRIVE AND PERFORM WORK TASKS, DECREASED PARTICIPATION IN COMMUNITY AND RECREATIONAL ACTIVITIES AND DISRUPTED SLEEP. THE PT IS A GOOD CANDIDATE FOR SKILLED PT DUE TO AGE, POTENTIAL REMEDIATION OF IMPAIRMENTS, TYPICAL DISEASE/CONDITION PROGRESSION AND PROGNOSIS, COMORBIDITIES, AND MOTIVATION. PT WOULD BENEFIT FROM TAILORED PROGRAM OF THERAPEUTIC ACTIVITIES, FUNCTIONAL TRAINING, GAIT TRAINING, POSTURAL EDUCATION, NEUROMUSCULAR RE-EDUCATION, AND MODALITIES NEEDED. Frequency and Duration: The patient will be seen 2 X WEEK FOR 4 WEEKS Short Term Goals: INITIATE HEP AND PROMOTE SELF MANAGEMENT OF SYMPTOMS [employer] Goals: FULL, PAIN FREE ROM FULL UE STRENGTH, PAIN FREE TO PERFORM ALL HOMEMAKING TASKS WITHOUT RESTRICTION TO PLACE OBJECT AT MINIMUM OF 5# INTO CABINET AT SHOULDER HEIGHT TO RETURN TO [employer] WORK Treatment Plan: Modalities to reduce pain, spasms and effusion. Manual therapy to restore motion and function. Therapeutic exercise to improve strength and flexibility. Neuromuscular re-education for posture and balance. Therapeutic activities to return to functional activities of daily living. Electronically signed by: OPAL BURNS PT, DPT Please sign and return to therapist. Thank you for your referral.
--- NOTE | 2022-07-25 10:59 | MHC.PT.DC ---
[facility] [place] Office [place] Office [place] Office [address] Yannick Spear [address] [phone] F: [phone] F: [phone] F: [phone] F: [phone] Physical Therapy Discharge Report Diagnosis: Anterior interval release and synovectomy sub acromial decompression Date of Surgery: 05/10/22 Date of Evaluation: 05/15/22 Date of Discharge: 07/25/22 Treatments to Date: 7 Cancellations to Date: 6 No Shows to Date: 4 Discharge Status: Visit Non-compliance Discharge Summary: The patient has had poor attendance throughout this plan of care. He was hesitant to work on his range of motion and often required a lot of encouragement to participate. He had fair compliance with his HEP. He is discharged from this physical therapy plan of care due to visit non-compliance. Per last treatment note: Pt with maintained ROM from last visit, feels he is not progressing and is frustrated with the process. Pt with increased tension in R pec and bicep, able to naldo gentle manual stretches. Continue to progress per pt naldo. Electronically signed by: Lashonda Driver PT, DPT Please sign and return to therapist. Thank you for your referral.
== END 2022-07-25 10:59 | disposition home or self-care (01) ==
LOC: HO.PT 13:00
PROVIDERS: PCP Internal Medicine; Visit Provider Physician Assistant
DX: M75.41 Impingement syndrome of right shoulder (principal)
CPT/HCPCS: 97110; 97140; 97161; 97535

== ENCOUNTER 2023-06-27 12:16 | Outpatient (REF) | payer MEDICAID, SELFPAY ==
--- NOTE | ~2023-06-27 | XR_ITS ---
EXAMINATION: XR CHEST CLINICAL INFORMATION: Left lower lobe pneumonia. Cough for one week. Left pleural or rales on auscultation. COMPARISON: February 29, 2020. TECHNIQUE: 2 views of the chest were obtained. XR/XR chest 2V FINDINGS/IMPRESSION: A focal interstitial and alveolar infiltrate projects over the lower lobes on lateral view. It is unclear on frontal view whether this is on the left or the right; it is probably located on the left. No effusion or pneumothorax is seen. The cardiovascular structures, mediastinum, and diaphragm appear unremarkable. There is an old, healed fracture of the distal end of the left clavicle. There may be a mild compression deformity of a midthoracic vertebral body, age indeterminate. Recommend clinical correlation.
== END 2023-06-27 12:17 | disposition home or self-care (01) ==
LOC: HO.HHCX 12:16
PROVIDERS: Visit Provider General Practice
DX: J18.9 Pneumonia, unspecified organism (principal)
CPT/HCPCS: 71046

== ENCOUNTER 2023-10-24 14:45 | Outpatient (REF) | payer MEDICAID, SELFPAY ==
[2023-10-24 18:04] LABS: Alanine Aminotransferase 49 U/L (0-40); Albumin Level 3.8 g/dL (3.5-5.0); Alkaline Phosphatase 62 U/L (39-117); Aspartate Amino Transferase 35 U/L (5-37); Bilirubin Direct 0.1 mg/dL (0.0-0.5); Bilirubin Total 0.6 mg/dL (0.0-1.0); Cholesterol 180 mg/dL (<200); HDL Cholesterol 36 mg/dL (>40); LDL Cholesterol Calculated 97 mg/dL (<100); Total Protein 5.8 g/dL (6.5-8.0); Triglycerides 238 mg/dL (<150)
== END 2023-10-24 14:46 | disposition home or self-care (01) ==
LOC: HO.CHCLDS 14:45
PROVIDERS: Visit Provider Internal Medicine
DX: E78.2 Mixed hyperlipidemia (principal)
CPT/HCPCS: 36415; 80061; 80076

== ENCOUNTER 2024-04-10 09:09 | Emergency (ER) | payer MEDICAID, SELFPAY ==
--- NOTE | ~2024-04-10 | XR_ITS ---
EXAMINATION: XR CHEST CLINICAL INFORMATION: Chest pain COMPARISON: Chest radiograph from 06/27/2023 TECHNIQUE: 2 views of the chest were obtained. FINDINGS: No focal consolidation. No pneumothorax. Trachea is midline. Cardiac mediastinal silhouette is not enlarged. No large pleural effusion. Chronic fracture deformity of the left distal clavicle. Soft tissues are unremarkable. XR/XR chest 2V IMPRESSION: No acute cardiopulmonary process.
--- NOTE | 2024-04-10 09:12 | ECG_ITS ---
Test Reason : chest pain Blood Pressure : / mmHG Vent. Rate : 082 BPM Atrial Rate : 082 BPM P-R Int : 142 ms QRS Dur : 084 ms QT Int : 360 ms P-R-T Axes : 034 049 024 degrees QTc Int : 420 ms Normal sinus rhythm Nonspecific T wave abnormality Abnormal ECG When compared with ECG of 29-FEB-2020 17:43, No significant change was found Referred By: Generic ED Physician Electronically Signed By:CHAYO CORBETT MD
[2024-04-10 09:24] VITALS: BP 126/78; PULSE 84; RESP 16; TEMP 37.1; O2SAT 97; BMI 35.4
[2024-04-10 09:34] LABS: MANUAL DIFF FLAG NO
[2024-04-10 09:37] LABS: Basophils Absolute Auto 0.1 X10*3/uL (0.0-0.2); Basophils Percent Auto 0.8 % (0-2); Eosinophils Absolute Auto 0.1 X10*3/uL (0.0-0.4); Eosinophils Percent Auto 1.5 % (0-4); Hematocrit 43.7 % (42.0-52.0); Hemoglobin 15.1 g/dl (14.0-18.0); Imm Gran Abs Auto 0.01 X10*3/uL (0.00-0.03); Imm Gran Pct Auto 0.2 % (0.0-0.4); Lymphocytes Absolute Auto 2.7 X10*3/uL (1.2-4.9); Mean Corpuscular HGB Conc 34.6 g/dl (31.0-36.0); Mean Corpuscular Hemoglobin 28.4 pg (27.0-33.0); Mean Corpuscular Volume 82.1 fL (80.0-98.0); Mean Platelet Volume 11.7 fL (9.4-12.4); Monocytes Absolute Auto 0.4 X10*3/uL (0.1-1.2); Monocytes Percent Auto 6.4 % (2-11); Neutrophils Absolute Auto 3.3 x10*3/uL (2.0-8.3); Neutrophils Percent Auto 50.1 % (45-73); Platelet Count 182 X10*3/uL (160-400); Red Blood Count 5.32 X10*6/uL (4.60-5.80); Red Cell Distribution Width 13.7 % (11.0-16.0); White Blood Count 6.6 X10*3/uL (4.8-10.8)
[2024-04-10 09:53] LABS: Anion Gap 13 (12-20); Blood Urea Nitrogen 12 mg/dL (9-16); Carbon Dioxide 23 mmol/L (22-29); Chloride 108 mmol/L (96-108); Creatinine Clr Calc Pharmacy 106.7; Estimated Glomerular Filt Rate > 60; Glucose Random 183 mg/dL (60-115); Potassium 3.6 mmol/L (3.3-5.1); Sodium 140 mmol/L (135-145)
[2024-04-10 10:00] VITALS: BP 116/70; PULSE 74; RESP 10; TEMP 36.8; O2SAT 96
[2024-04-10 10:01] LABS: B Type Natriuretic Peptide < 10 pg/mL (<100); Troponin-I High Sensitivity < 2.7 ng/L (<3.5-35.0)
[2024-04-10 10:14] LABS: Influenza A PCR NEGATIVE (Negative); Influenza B PCR NEGATIVE (Negative); Resp Syncy Virus RNA Qual PCR NEGATIVE (Negative); SARS COV2 PCR INHOUSE NEGATIVE (Negative)
--- NOTE | 2024-04-10 11:24 | ED_ITS ---
HPI - Chest Pain General Chief Complaint: Chest Pain Stated Complaint: Chest pain Time Seen by Provider: 04/10/24 10:47 Source: patient Mode of arrival: ambulatory History of Present Illness HPI narrative: 49-year-old male with history of HLD, prior smoker 3 years ago, denies any alcohol/drugs use and reports sharp parasternal chest pain that is intermittent in nature and he denies any association with positional change/deep inspiration/movement that started last night in states that has persisted into today. Related Data Home Medications ?Medication ?Instructions ?Recorded ?Confirmed omeprazole 20 mg capsule,delayed 1 cap PO DAILY 05/19/21 05/10/22 release Previous Rx's ?Medication ?Instructions ?Recorded diclofenac sodium 75 mg 75 mg PO BID PRN pain 30 days #60 05/10/22 tablet,delayed release tabs Allergies Allergy/AdvReac Type Severity Reaction Status Date / Time acetaminophen [From Vicodin] AdvReac Nausea and Verified 04/10/24 09:26 Vomiting, hives hydrocodone [From Vicodin] AdvReac Nausea and Verified 04/10/24 09:26 Vomiting Review of Systems 2 Review of Systems: Pertinent positives and negatives as stated in HPI PMFSH Past Medical History Source: nursing notes reviewed Medical History Prolapsed hemorrhoids Hemorrhoids Anxiety Smoker IBS (irritable bowel syndrome) Depression GERD (gastroesophageal reflux disease) HLD (hyperlipidemia) HTN (hypertension) Surgical History Hx of colonoscopy History of esophagogastroduodenoscopy (EGD) Hx of hand surgery H/O hemorrhoidectomy Social History Social History Household Members Other:: lives alone-5 daughters and 1 son Are you a primary healthcare social worker to a significant other at home: No Do you presently have visiting nurse or other home services: No Alcohol intake: current Alcohol intake frequency: does not drink Patient Tobacco Use Status: Former Tobacco user Quit Date: 01/26/2022 Advance Directives: No Current occupational status: unemployed and disabled Current occupation: left handed Physical Exam 2 Vital Signs: Vital Signs: Last Vital Signs Temp 98.2 F 04/10/24 10:00 Pulse 74 05/16/24 10:00 Resp 10 L 04/10/24 10:00 BP 116/70 04/10/24 10:00 Pulse Ox 96 04/10/24 10:00 O2 Del Method Room Air 04/10/24 10:00 BMI result Body Mass Index 35.4 VITAL SIGNS: Reviewed. GENERAL: Well developed, well nourished, in no acute distress. HEAD: Normocephalic/atraumatic EYES: PERRLA, EOMI EARS: Ext canals without abnormality NOSE: Nares patent bilateral OROPHARYNX: no oral lesions noted, posterior pharynx clear NECK: Supple, no adenopathy LUNGS: Normal breath sounds. No adventitious sounds or accessory muscle use. SpO2<96>; CHEST WALL: There is reproducible chest pain at the approximate ribs 6/7 without crepitus CARDIOVASCULAR: Regular rate and rhythm without noted murmurs, no JVD or lower extremity edema. ABDOMEN: Soft, non-tender, non-distended with bowel sounds. MUSCULOSKELETAL: No tenderness, deformities, or effusions noted on gross inspection. EXTREMITIES: No cyanosis, clubbing or edema. SKIN: Inspection of the skin reveals no rashes NEUROLOGIC: Alert and oriented x 4. Strength and sensation to light touch were grossly intact x 4. Medical Decision Making Medical Decision Making [facility] Narrative: 49-year-old male with history and clinical presentation, DDX: Musculoskeletal, costochondritis, no concern for pericarditis/ACS/pneumonia, low clinical suspicion for pancreatitis/gastritis given reproducibility of the pain over the ribs/cartilage interface. Patient given combination analgesics with lidocaine patch. I reviewed all investigations and hematologic indices are negative for leukocytosis/anemia/thrombocytopenia. Chemistries indices are negative for MARCELINO/electrolyte or liver enzyme derangements and high sensitivity troponin is undetectable and BNP is undetectable. Viral testing is negative for influenza/RSV/COVID-19. Chest x-ray negative for infiltrate or venous congestion otherwise my interpretation is in agreement with radiology's impression. EKG without concerning features. All results and findings to include the suspected diagnosis were discussed with the patient at bedside and he is otherwise discharged with strong recommendations to follow-up with his primary care doctor. Differential Diagnosis Differential Diagnoses: The differential diagnosis associated with the presentation includes Please see the discussion above Admission/Observation Consideration of admission/observation: Escalation of care including admission/observation considered Please see the discussion above Lab Data [facility] Lab Attestation statement: I reviewed the patient's lab results. Please see the discussion above 04/10/24 09:26 04/10/24 09:26 Labs: Lab Results 04/10/24 Range/Units 09:26 WBC 6.6 (4.8-10.8) X10*3/uL RBC 5.32 (4.60-5.80) X10*6/uL Hgb 15.1 (14.0-18.0) g/dl Hct 43.7 (42.0-52.0) % MCV 82.1 (80.0-98.0) fL MCH 28.4 (27.0-33.0) pg MCHC 34.6 (31.0-36.0) g/dl RDW 13.7 (11.0-16.0) % Plt Count 182 (160-400) X10*3/uL MPV 11.7 (9.4-12.4) fL Immature Gran % (Auto) 0.2 (0.0-0.4) % Neut % (Auto) 50.1 (45-73) % Lymph % (Auto) 41.0 H (20-40) % [place] % (Auto) 6.4 (2-11) % Eos % (Auto) 1.5 (0-4) % Baso % (Auto) 0.8 (0-2) % Lymph # (Auto) 2.7 (1.2-4.9) X10*3/uL [place] # (Auto) 0.4 (0.1-1.2) X10*3/uL Eos # (Auto) 0.1 (0.0-0.4) X10*3/uL Baso # (Auto) 0.1 (0.0-0.2) X10*3/uL Abs Immat Gran (auto) 0.01 (0.00-0.03) X10*3/uL Absolute Neuts (auto) 3.3 (2.0-8.3) x10*3/uL Absolute Nucleated RBC 0.000 (0.0-0.012) X10*3/uL Nucleated RBC % (auto) 0.0 (0.0-0.2) /100WBC Sodium 140 (135-145) mmol/L Potassium 3.6 (3.3-5.1) mmol/L Chloride 108 (96-108) mmol/L Carbon Dioxide 23 (22-29) mmol/L Anion Gap 13 (12-20) BUN 12 (9-16) mg/dL Creatinine 1.04 (0.5-1.4) mg/dL Estim Creat Clear Calc 106.7 Estimated GFR > 60 Random Glucose 183 H (60-115) mg/dL Calcium 9.0 (8.4-10.2) mg/dL Troponin I High Sens < 2.7 (<3.5-35.0) ng/L B-Natriuretic Peptide < 10 (<100) pg/mL Influenza Type A (PCR) NEGATIVE (Negative) Influenza Type B (PCR) NEGATIVE (Negative) RSV RNA Qual (PCR) NEGATIVE (Negative) SARS-CoV-2 RNA (RT-PCR) NEGATIVE (Negative) Independent Interpretation I performed an independent interpretation of an: EKG Interpretation: Normal sinus rhythm, HR-82, no STEMI, AL/QRS/QTC is within normal limits. Radiology Impression Discussion of test interpretation with radiology: I have reviewed the radiologist's reading. Radiologist Impression: Please see the discussion above External Record Review External record reviewed: Outpatient record and Prior outpatient labs Chronic Conditions HLD Critical Care Time Critical Care Time Critical Care Time: Yes Total Critical Care Time: 45 Attestation: I personally attest to this time spent taking care of the patient. Discharge Plan Discharge Clinical Impression: Atypical chest pain, Chest wall pain, Costochondritis Patient Disposition: Home, Self-Care Instructions: Costochondritis (ED), Chest Wall Pain (ED) Additional Instructions: 1. Ibuprofen 400 mg, orally with milk or food, every 6 hours as needed for pain control. 2. Lidocaine patch, this is available [id number], place it at the area of maximal tenderness as directed on the outside packaging. 3. Follow-up with your primary care doctor on Sunday morning. Return to the ER for any worsening symptoms. Prescriptions: No Action omeprazole 20 mg capsule,delayed release(DR/EC) 1 cap PO DAILY diclofenac sodium 75 mg tablet,delayed release (DR/EC) 75 mg PO BID PRN (Reason: pain) 30 Days Qty: 60 0RF Referrals: Isaac Sarah MD [Primary Care Provider] - Print Language: [place] Citizen
[2024-04-10] MEDS: Ibuprofen 400 MG TABLET PO (11:33)
[2024-04-10] MEDS: Lidocaine 4 % Patch ADH..PATCH 1 PATCH TRANSDERMA (11:34)
[2024-04-10 11:39] VITALS: BP 104/67; PULSE 67; RESP 12; TEMP 37.1; O2SAT 95
== END 2024-04-10 11:44 | disposition home or self-care (01) ==
PROVIDERS: Emergency Provider Student in an Organized Health Care Education/Training Program; PCP Internal Medicine
DX: R07.89 Other chest pain (principal); M94.0 Chondrocostal junction syndrome [Tietze]; I10 Essential (primary) hypertension
CPT/HCPCS: 0241U; 36415; 71046; 80048; 83880; 84484; 85025; 93005; 99283; 99285

== ENCOUNTER → 2024-04-10 09:12 | Outpatient (BNV) | payer MEDICAID, SELFPAY | PROVIDERS: Emergency Provider Student in an Organized Health Care Education/Training Program; PCP Internal Medicine; Visit Provider Internal Medicine Cardiovascular Disease | DX: R94.31 Abnormal electrocardiogram [ECG] [EKG] (principal) | CPT/HCPCS: 93010 ==

== ENCOUNTER 2025-06-08 14:44 | Emergency (ER) | payer MEDICAID, SELFPAY ==
[2025-06-08 15:14] VITALS: BP 116/71; PULSE 82; RESP 16; TEMP 36.1; O2SAT 95; BMI 33.0
--- NOTE | 2025-06-08 15:37 | ED.WOUNDLAC ---
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 Patient states he was using a lithographic etcher while cutting sweet potatoes when he looked away briefly and cut his right thumb instead. Reports the area began to immediately bleed. He washed the area out and applied a Band-Aid. Bleeding is controlled on arrival. Admits the thumb is throbbing . His tetanus is not UTD. Denies any numbness/tingling/weakness of the digit. Not on anticoagulation. Related Data Home Medications ?Medication ?Instructions ?Recorded ?Confirmed omeprazole 20 mg capsule,delayed 1 cap PO DAILY 05/19/21 05/10/22 release Previous Rx's ?Medication ?Instructions ?Recorded diclofenac sodium 75 mg 75 mg PO BID PRN pain 30 days #60 05/10/22 tablet,delayed release tabs Allergies Allergy/AdvReac Type Severity Reaction Status Date / Time acetaminophen (From Vicodin) AdvReac Nausea and Verified 06/08/25 15:15 Vomiting, hives hydrocodone (From Vicodin) AdvReac Nausea and Verified 06/08/25 15:15 Vomiting Review of Systems Review of Systems: Constitutional: No fever, chills, fatigue, night sweats, weight changes ENT/Mouth: No ear pain, hearing loss, nasal congestion, sinus pain, rhinorrhea, sore throat Eyes: No eye pain, swelling, redness, vision changes, discharge Cardio: No chest pain, palpitations, MONTANEZ, orthopnea, peripheral edema Pulm: No SOB, cough, sputum, wheezing, dyspnea, hemoptysis GI: No nausea, vomiting, hematemesis, abdominal pain, diarrhea, constipation, hematochezia, melena : No irregular bleeding, dysuria, frequency, urgency, hesitancy, hematuria, flank pain, urinary flow changes, urinary incontinence or retention MSK: No back pain, neck pain, joint pain, myalgias Skin: No lesions, rashes, +laceration Neuro: No weakness, numbness, paresthesias, LOC, dizziness, headache Psych: No anxiety/panic, depression, SI/HI, AH/VH All other systems reviewed and are negative. [facility] Past Medical History Attestation statement: The following information was validated with the patient. Source: old records reviewed and nursing notes reviewed Medical History Prolapsed hemorrhoids Hemorrhoids Anxiety Smoker IBS (irritable bowel syndrome) Depression GERD (gastroesophageal reflux disease) HLD (hyperlipidemia) HTN (hypertension) Surgical History Hx of colonoscopy History of esophagogastroduodenoscopy (EGD) Hx of hand surgery H/O hemorrhoidectomy Social History Social History Household Members Other:: lives alone-5 daughters and 1 son Are you a primary professional healthcare representative to a significant other at home: No Do you presently have visiting nurse or other home services: No Alcohol intake: current Alcohol intake frequency: does not drink Patient Tobacco Use Status: Former Tobacco user Advance Directives: No Advance Directives Information Provided: No Do you have a plan to hurt others: No Plan Current occupational status: unemployed and disabled Current occupation: left handed Physical Exam Vital Signs: Vital Signs: Last Vital Signs Temp 96.9 F 06/08/25 16:07 Pulse 82 06/08/25 16:07 Resp 16 06/08/25 16:07 BP 116/71 06/08/25 16:07 Pulse Ox 95 06/08/25 16:07 O2 Del Method Room Air 06/08/25 16:07 BMI result Body Mass Index 33.0 Vital signs stable General: Well appearing, in no acute distress. Skin: Warm, dry, intact. No rashes or lesions. Head: Normocephalic, atraumatic. EENT: Hearing is intact b/l. Conjunctiva clear. PERRLA. EOM intact. Moist mucous membranes.? Ext: +superficial skin flap laceration to finger pad of right thumb. No involvement of nail. No active bleeding. No foreign body. Full ROM intact to right thumb. Sensation intact. 2+ radial pulse intact. Neuro: AOx3. Normal speech. Ambulating with steady gait. Course Course Course Narrative: Superficial laceration does not require repair with sutures. Dermabond and Steri-Strips applied. Patient tolerated well. Bandage applied over top. Tdap booster given. Imaging not warranted at this time. Patient has remained stable throughout ED visit today. Discussed worrisome signs and symptoms and when to return to the ED. All questions answered at this time. Patient is agreeable with disposition and stable for discharge. 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 vital signs stable. He is well-appearing and in no acute distress. on exam, superficial skin flap laceration to finger pad of right thumb. No involvement of nail. No active bleeding. No foreign body. Full ROM intact to right thumb. Sensation intact. 2+ radial pulse intact. Differential diagnosis includes abrasion, laceration. Unlikely fracture, retained foreign body. Plan for laceration repair, Tdap and disposition. Differential Diagnosis Differential Diagnoses: The differential diagnosis associated with the presentation includes as above. Admission/Observation not indicated. Prescription Management I considered prescription management with: Pain Medication Social Determinants Patient?s care significantly limited by Social Determinants of Health including: Other Social Determinant of Health Procedures Laceration Laceration 1: Site: hand (Thumb) Side (If applicable): right Size (cm): 1 Description: linear Depth: simple, single layer Pre-repair: wound explored and irrigated extensively Skin layer closed with: other (Dermabond, Steri-Strips) Critical Care Time Critical Care Time Critical Care Time: No Discharge Plan Discharge Clinical Impression: Laceration of thumb Qualifiers: Encounter type: initial encounter Damage to nail status: without damage Foreign body presence: without foreign body Laterality: right Qualified Code(s): S61.011A - Laceration without foreign body of right thumb without damage to nail, initial encounter Patient Disposition: Home, Self-Care Instructions: Laceration (ED) Additional Instructions: You have been evaluated in the Emergency Department today for a laceration to your right thumb. Your laceration was repaired in the ED with Dermabond (skin glue) and Steri-Strips. Your tetanus vaccination was also updated and will be valid for 5-10 years. Please keep the area surrounding the laceration clean and dry. Do not get the area wet for 24 hours. After 24 hours, you may clean the area with a non-scented soap and pat to dry. The Steri-Strips will fall off on their own. You may change your bandage. Please keep the area out of the sunlight for the next 6 months to help prevent scarring.? If you develop redness or swelling at the site of your laceration or note any discharge/ fluid coming from the laceration, please come back to the ER for a wound check. I recommend you take 600mg ibuprofen every 6 hours or tylenol 650mg every 6 hours as needed for pain. If needed, you can alternate these medications so that you take one medication every 3 hours. For example, at noon take ibuprofen, then at 3pm take tylenol, then at 6pm take ibuprofen. Return to the Emergency Department if you experience discharge from your laceration, redness around your laceration, warmth around your laceration, fever, vomiting, numbness, tingling, or any other concerning symptoms. In the case of an emergency call 911. Prescriptions: No Action omeprazole 20 mg capsule,delayed release(DR/EC) 1 cap PO DAILY diclofenac sodium 75 mg tablet,delayed release (DR/EC) 75 mg PO BID PRN (Reason: pain) 30 Days Qty: 60 0RF Referrals: Isaac Sarah MD [Primary Care Provider, Medical] Stand Alone Forms: Work/School Release Interventions: ED Discharge Assessment Last Done: 06/08/25 16:07 Discharge Date/Time: 06/08/25 16:07 Print Language: Maltese
[2025-06-08] MEDS: Diphth,Pertus(ACell),Tet Adult 0.5 ML SYRINGE IM (15:43)
[2025-06-08 16:07] VITALS: BP 116/71; PULSE 82; RESP 16; TEMP 36.1; O2SAT 95
--- OUTSIDE RECORDS SUMMARY | 2025-06-08 16:41 | XMS_ITS | Encounter Summary ---
Author Organization [employer] Address [address] [facility] [address] [place] [address] Care Team Providers Care Lapping Machine Tender Name Role Phone Isaac Sarah MD Primary Care Prov ider Reason for Visit * Reason Comments Med Refill Encounter Details Date Type Department Care Team ([facility] st Contact Info) Description 04/10/2024 Refill [facility] [address], [place] [phone] Isaac Sarah MD [address] [place] [address] Mixed hyperlipidemia Social History Tobacco Use Types Packs/Day Years Used Date Smoking Tobacco: Former Cigarettes Q uit: 02/2022 Passive Smoke Exposure: Past Smokeless Tobacco: Never Alcohol Use Standard Drinks/Week Comments Never 0 (1 standard drink = 0.6 oz pur e alcohol) Depression Answer Date Recorded Patient Health Questionnaire-9 Score 10 01/08/2023 Housing Stability Answer Date Recorded What is your housing situation today? I have jeronimo connolly 09/18/[address] you li ve. Do you have problems with any of the following? None of the above 09/18/2023 Food Insecurity Answer Date Recorded Within the past 12 months, y ou worried that your food would run out before you got money to buy more: Never True 09/18/2023 Within the past 12 months,th e food you bought just didn't last and you didn't have enough money to get more: Never True Transportation Answer Date Recorded In the past 12 months, has l ack of transportation kept you from medical appts, meetings, work or from getting things needed for daily living? No 09/18/2023 Utilities Answer Date Recorded In the past 12 months, has t he electric, gas, oil or water company threatened to shut off services in your home? No 09/18/2023 Depression Answer Date Recorded Patient Health Questionnaire-2 Score 4 01/08/2023 Sex and Gender Information Value Date Recorded Sex Assigned at Male 09/25/2022 10:19 AM EDT Legal Sex Male 10:19 AM EDT Gender Identity Male 09/25/2022 10:19 AM EDT Sexual Orientation Straight 09/25/2022 10 :19 AM EDT documented as of this encounter Plan of Treatment Not on file documented as of this encounter Visit Diagnoses Diagnosis Mixed hyperlipidemia documented in this encounter Additional Health Concerns Assessment Noted Time PHQ-9 Depression Total Score: 10 023 10:36 AM EST documented as of this encounter Care Teams Lapping Machine Tender Relationship Specialty Start Date End Date Isaac Sarah MD [address] [place] [id number] PCP - General Internal Medicine 11/01/22 documented as of this encounter
== END 2025-06-08 16:07 | disposition home or self-care (01) ==
PROVIDERS: Emergency Provider Emergency Medicine; PCP Internal Medicine
DX: S61.011A Laceration without foreign body of right thumb without damage to nail, initial encounter (principal); W27.4XXA Contact with kitchen utensil, initial encounter; Y93.89 Activity, other specified; Y92.9 Unspecified place or not applicable; Y99.9 Unspecified external cause status; Z23 Encounter for immunization
CPT/HCPCS: 90471; 90715; 99282; 99284